=== PATIENT | female | born 1945 | race Caucasian/White ===

== ENCOUNTER → 2020-01-28 | Outpatient (CLI) | payer MEDICARE ==
[~2020-01-28] MED LIST: ASPI-630 PO; FERR325T14 PO; GLYB2.5T2 PO; LEVO100T5 PO; LISI1TAB20 PO; LOVA20TA2 PO; METF10007 PO; METO25TA2 PO; NAPR220T70 PO; VERA240C2 PO
[2020-01-28 09:23] LABS: BASO % 1 % (0-3); EOS # 0.1 x10^3/uL (0.0-0.7); EOS % 1 % (0-3); HEMATOCRIT 26.5 % (36.0-47.0); HEMOGLOBIN 7.9 g/dL (12.0-15.5); LYMPH # 1.1 x10^3/uL (1.0-4.8); LYMPH % 20 % (24-48); MEAN CORPUSCULAR HEMOGLOBIN 20 pg (25-35); MEAN CORPUSCULAR HGB CONC 30 g/dL (31-37); MEAN CORPUSCULAR VOLUME 67 fL (79-100); MONO # 0.3 x10^3/uL (0.0-1.1); MONO % 6 % (0-9); NEUT # 3.9 x10^3/uL (1.8-7.7); NEUT % 72 % (31-73); PLATELET COUNT 111 x10^3/uL (140-400); RED BLOOD COUNT 3.96 x10^6/uL (3.50-5.40); RED CELL DISTRIBUTION WIDTH 17.6 % (11.5-14.5); WHITE BLOOD COUNT 5.4 x10^3/uL (4.0-11.0)
[2020-01-28 09:31] LABS: PROTHROMBIN TIME PATIENT 13.5 SEC (11.7-14.0)
[2020-01-28 09:40] LABS: ALBUMIN 3.6 g/dL (3.4-5.0); CALCIUM 9.1 mg/dL (8.5-10.1); CREATININE 0.8 mg/dL (0.6-1.0); GFR 70.3; POTASSIUM 3.9 mmol/L (3.5-5.1)
[2020-01-28 09:50] LABS: PLT ESTIMATE DECREASED (ADEQUATE)
[2020-01-28 09:52] LABS: ANISOCYTOSIS MOD; HYPOCHROMIA MOD; MICROCYTOSIS MOD; OVALOCYTES FEW; POLYCHROMASIA SLIGHT; STOMATOCYTES OCC; TARGET CELLS FEW; TEAR DROP CELLS OCC
--- NOTE | 2020-01-28 13:20 | EKG ---
[facility] [address] [place] [address] Test Date: 2020-01-28 Test Time: 12:58:59 Pat Name: ADOLPH BLACKMAN Department: Room: Gender: F [employer]uarant Crew Worker: VAZQUEZ : [id number] Requested By: HAKAN JUAREZ Order Number: [id number] Reading MD: Ad Floyd Measurements Intervals [place] Rate: 69 P: 0 MA: 182 QRS: 11 QRSD: 82 T: 10 QT: 432 QTc: 465 Interpretive Statements SINUS RHYTHM NORMAL ECG Electronically Signed On 01-28-2020 15:05:01 CDT by Ad Floyd
--- NOTE | 2020-01-28 14:40 | RAD ---
CHEST PA LATERAL History: Hypertension. Joint pre-hab class Comparison: None. Findings: Frontal and lateral views of the chest were obtained. The cardiomediastinal silhouette is normal. Pulmonary vasculature is normal. The lungs are clear. No pleural effusion or pneumothorax is seen. There is no acute bone abnormality. Surgical clips involve the upper abdomen. IMPRESSION: No acute cardiopulmonary process. Electronically signed by: Chava Contreras MD (01/28/2020 2:37 PM) [id number]
[2020-01-29 00:07] LABS: HEMOGLOBIN A1C 6.1 % (4.8-5.6)
== END | disposition home or self-care (01) ==
LOC: SURGPAT 12:56
PROVIDERS: ATTEND Orthopaedic Surgery Sports Medicine
DX: Z01.818 Encounter for other preprocedural examination (principal); M16.11 Unilateral primary osteoarthritis, right hip; I10 Essential (primary) hypertension; Z88.0 Allergy status to penicillin
CPT/HCPCS: 36415; 71046; 80048; 82040; 82306; 83036; 85025; 85610; 85651; 85730; 87641; 93005

== ENCOUNTER → 2020-04-24 | Outpatient (CLI) | payer MEDICARE ==
[~2020-04-24] MED LIST changes: +HYDR-2761 PO; +OXYC1TAB15 PO; +WARF5TAB2 PO
[2020-04-24 09:55] LABS: BASO % 1 % (0-3); EOS # 0.1 x10^3/uL (0.0-0.7); EOS % 2 % (0-3); HEMATOCRIT 30.3 % (36.0-47.0); HEMOGLOBIN 9.2 g/dL (12.0-15.5); LYMPH # 1.2 x10^3/uL (1.0-4.8); LYMPH % 19 % (24-48); MEAN CORPUSCULAR HEMOGLOBIN 22 pg (25-35); MEAN CORPUSCULAR HGB CONC 31 g/dL (31-37); MEAN CORPUSCULAR VOLUME 71 fL (79-100); MONO # 0.5 x10^3/uL (0.0-1.1); MONO % 8 % (0-9); NEUT # 4.3 x10^3/uL (1.8-7.7); NEUT % 71 % (31-73); PLATELET COUNT 132 x10^3/uL (140-400); RED BLOOD COUNT 4.28 x10^6/uL (3.50-5.40); RED CELL DISTRIBUTION WIDTH 19.1 % (11.5-14.5); WHITE BLOOD COUNT 6.1 x10^3/uL (4.0-11.0)
[2020-04-24 11:58] LABS: PROTHROMBIN TIME PATIENT 13.5 SEC (11.7-14.0)
[2020-04-24 12:00] LABS: ALBUMIN 3.6 g/dL (3.4-5.0); C-REACTIVE PROTEIN 0.9 mg/L (0-3.3); CALCIUM 8.6 mg/dL (8.5-10.1); CREATININE 1.1 mg/dL (0.6-1.0); GFR 48.7; POTASSIUM 4.2 mmol/L (3.5-5.1)
[2020-04-24 12:43] LABS: PLT ESTIMATE DECREASED (ADEQUATE)
[2020-04-24 12:45] LABS: ANISOCYTOSIS PRESENT; HYPOCHROMIA MOD; MICROCYTOSIS MOD
[2020-04-25 00:07] LABS: HEMOGLOBIN A1C 5.9 % (4.8-5.6)
== END | disposition home or self-care (01) ==
LOC: SURGPAT 09:03
PROVIDERS: ATTEND Orthopaedic Surgery Sports Medicine
DX: Z01.818 Encounter for other preprocedural examination (principal); M16.11 Unilateral primary osteoarthritis, right hip; Z79.01 Long term (current) use of anticoagulants; Z79.899 Other long term (current) drug therapy; Z88.0 Allergy status to penicillin
CPT/HCPCS: 36415; 80048; 82040; 82306; 83036; 85025; 85610; 85730; 86140; 87641; U0003-CS

== ENCOUNTER 2020-04-28 08:14 | Inpatient (IN) | payer MEDICARE ==
[~2020-04-28] VITALS: Ht 154.9 cm; Wt 77.5 kg
[2020-04-28] VITALS (9 sets, daily range): BP systolic 119–138; BP diastolic 49–63
[~2020-04-28 08:14] MED LIST changes: +ACETAMINOPHEN 500 MG TABLET PO PRN; -HYDR-2761 PO; +HYDROmorphone 2 MG/ML VIAL IV PRN; +IV RINGERS,LACTATED 1000ML 1,000 ML IV SCH; +LIDOCAINE 1% PF 2 ML VIAL. ID PRN; +MELOXICAM 7.5 MG TABLET PO PRN; +MORPHINE SULFATE 2 MG/ML VIAL. IV PRN; +ONDANSETRON PF 4 MG/2 ML VIAL. IV PRN; -OXYC1TAB15 PO; +PROCHLORPERAZINE 10 MG/2 ML VIAL. IV PRN; +TRANEXAMIC ACID 1,000 MG in IV NS 50ML -- 1ST BAG INJ ONE; +TRANEXAMIC ACID 1,000 MG in IV NS 50ML -- 2ND BAG INJ ONE; +TV=100ml MORPHINE 5 MG, KETOROLAC 30 MG, ROPIVacaine 0.5% PF 60 ML, EPINEPH... INT ART ONE; +VANCOMYCIN 1GM IVPB FOR OMNI 250 ML IV PRN; -WARF5TAB2 PO; +fentaNYL PF VIAL 100 MCG/2 ML VIAL IV PRN
[2020-04-28] MEDS ORDERED: fentaNYL PF VIAL 100 MCG/2 ML VIAL ONE ×2 (08:22→10:51)
[2020-04-28] MEDS ORDERED: PROPOFOL 10 MG/ML (20ML) VIAL. IV ONE (08:22)
[2020-04-28] MEDS ORDERED: GLYCOPYRROLATE 1 MG/5 ML VIAL. ONE (08:22)
[2020-04-28] MEDS ORDERED: NEOSTIGMINE METHYLSULFATE 5 MG/5 ML SYRINGE. ONE (08:22)
[2020-04-28] MEDS ORDERED: ROCURONIUM 50 MG/5 ML VIAL. ONE (08:22)
[2020-04-28] MEDS ORDERED: ONDANSETRON PF 4 MG/2 ML VIAL. ONE (08:23)
[2020-04-28] MEDS ORDERED: DEXAMETHASONE SOD PHOS 4 MG/ML VIAL ONE (08:23)
[2020-04-28] MEDS ORDERED: LIDOCAINE 2% PF 5 ML VIAL. ONE (08:23)
[2020-04-28] MEDS: INSULIN LISPRO 100 UNIT/ML 3ML VIAL for OP,RR ONLY. SQ PRN ×2 (09:11→12:25)
[2020-04-28] MEDS ORDERED: VANCOMYCIN 1 GM in IV NORMAL SALINE 250ML 250 ML IV ONE ×2 (09:45→22:00)
[2020-04-28] MEDS ORDERED: ZOLPIDEM 5 MG TABLET. PO PRN (09:45)
[2020-04-28] MEDS ORDERED: DEXTROSE 50% 25 GM / 50ML DISP.SYRIN. IV PRN ×2 (09:45)
[2020-04-28] MEDS ORDERED: diphenhydrAMINE 50 MG/ML VIAL IVP PRN (09:45)
[2020-04-28] MEDS ORDERED: MORPHINE SULFATE 2 MG/ML VIAL. IVP PRN (09:45)
[2020-04-28] MEDS ORDERED: CALCIUM CARBONATE 500 MG TAB.CHEW PO PRN (09:45)
[2020-04-28] MEDS ORDERED: METOCLOPRAMIDE HCL 10 MG/2 ML VIAL. IVP PRN (09:45)
[2020-04-28] MEDS ORDERED: PROCHLORPERAZINE 5 MG TABLET. PO PRN (09:45)
[2020-04-28] MEDS ORDERED: 0.9 % SODIUM CHLORIDE 10 ML DISP.SYRIN. IV PRN (09:45)
[2020-04-28] MEDS ORDERED: fentaNYL PF VIAL 100 MCG/2 ML VIAL IVP PRN (09:45)
[2020-04-28] MEDS ORDERED: hydrALAZINE 20 MG/ML VIAL. ONE (10:48)
[2020-04-28] MEDS ORDERED: PHENYLEPHRINE in 0.9% NACL PF 1 MG/10 ML SYRINGE. IV ONE (11:11)
--- NOTE | 2020-04-28 11:45 | PDOC4 ---
Operative Note Operative Note Date of procedure: 04/28/2020 Surgeon: Andres Juarez Assistants: Cristino Shah and Layton Zee Preoperative diagnosis: Advanced right hip primary degenerative joint disease Postoperative diagnosis: Same Procedure performed: Right total hip arthroplasty Anesthesia: General Blood loss: 200 mL Complications: None Findings: Advanced degenerative joint disease of right hip Components inserted: [employer]hew 52mm R3 shell with a 36 mm 20 degree posterior liner and a size 16 standard femoral component with a 36+0 cobalt chrome head Reason for procedure: Patient is a very pleasant 74-year-old female who has had persistent and progressive pain interfering with her activities of daily living and recreational activities due to her right hip pain. Clinical and radiographic examination were consistent with the above preoperative diagnosis. The patient had tried and failed conservative therapies and because of this we had a discussion of the risks, benefits, and alternatives and she elected to proceed. Description of procedure: Patient was greeted in the preoperative area by myself or the correct extremity was verified and marked. She was taken to the operative suite, and antibiotics started as she was brought back. Once in the operating room, transferred gently supine to the operating table and secured to the bed with all pressure points padded, she had a left successful induction of a general anesthetic and then we placed her in a lateral decubitus position with the right side up. Axillary roll was used. I appreciate her leg lengths in this position. We then proceeded prep and drape right lower extremity and hip in our usual sterile fashion including an [place]oban sandwich. Our standard preoperative timeout was conducted. I then palpated marked surface anatomy and layo a line for my posterior lateral skin incision and incised skin accordance with this. I dissected subcutaneous tissue with electrocautery, ensuring hemostasis as I proceeded. Identified the fascia and incised this in line with the skin incision and bluntly split gluteus aarti. I then placed my self-retaining retractor, held the leg in slight internal rotation, excised some bursal tissue and identified the quadratus. I took this down with electrocautery followed by the piriformis which was tagged for later repair. I then opened his hip capsule in a T-type incision, tagging ends for later repair., This allowed us to deliver the femoral head into the operative field. I made cardoso for my offset and length and took these measurements. I then measured 1 cm proximal to the lesser trochanter with electrocautery on the neck and then made my neck cut, delivering bony remnant from the operative field. We then repositioned the leg, added our anterior and posterior acetabular retractors. I took down osteophytes and appreciated the citizen pot[place]atomi anatomy. I then began reaming and reamed up to the above size which gave good punctate bleeding bony bed. Overall, I felt her bone was quite soft. The operative field was then thoroughly irrigated. I then impacted my cup in position using the crossbar attachment on the insertion handle as well as referencing citizen [place]i anatomy. I then placed a screw into the posterior column. After this, I inserted my polyethylene liner, impacting in position and making sure it had fully seated. I then reposition the leg and added my proximal femoral elevator after removing my acetabular retractors. I used a cookie cutting osteotome followed by canal finding reamer and a lateralizing reamer. I then began broaching and broached to the above size. I then trialed various head and offset lengths. We then redislocated the hip and I removed the broach, the canal was thoroughly irrigated. I then impacted my femoral stem into position and we again trialed and neck lengths selecting the above size which helped reproduce the measurements, and gave excellent stability and leg length. After this, I redislocated the hip and washed and dried the [place] taper region and gently impacted my femoral head into position, we then irrigated everything out I inspected the cup, no debris. We then reduced the hip. I then closed capsule with simple interrupted #2 Ethibond. Piriformis was reapproximated through drill tunnels. Quadratus was repaired with #2 Ethibond. After this, fascia was closed with running #2 Quill. Inverted interrupted 2-0 Vicryl was used in a multilayered fashion for subcutaneous tissue and skin followed by running 3-0 Monocryl. Prior to wound closure, all counts correct x2. Prior to closing the skin and subcutaneous tissue, our periarticular mixture was injected in the lala-incisional soft tissues. After completing wound closure, the hip was cleansed and dried and our incisional wound VAC was applied. After this, the p atient was laid supine and transferred gently supine to the hospital bed and taken to PACU in stable and extubated condition. Postoperative plan is to admit her to the joint center for DVT and antibiotic prophylaxis as well as PT and OT. ANDRES JUAREZ II, MD Apr 28, 2020 11:45
[2020-04-28] MEDS: ONDANSETRON PF 4 MG/2 ML VIAL. IVP SCH ×2 (12:00→17:07)
[2020-04-28] MEDS: ONDANSETRON ODT 4 MG TAB.RAPDIS. PO SCH ×2 (12:00→17:08)
[2020-04-28] MEDS: INSULIN LISPRO 300 UNITS/3 ML VIAL. SQ SCH ×3 (12:00→17:06)
--- NOTE | 2020-04-28 12:57 | RAD ---
PELVIS History: Reason: post op right hip replacement / Spl. Instructions: / History: Technique: AP view the pelvis. Comparison: January 18, 2020 Findings: Interval right total hip arthroplasty. Expected postoperative changes subcutaneous and intra-articular gas. Normal alignment. No fracture. Vascular calcifications. Lower lumbar spondylosis. Impression: 1. Interval right total hip arthroplasty. No immediate hardware complications. Electronically signed by: Guevara Garnett DO (04/28/2020 12:54 PM) [id number]
[2020-04-28 14:47] LABS: PROTHROMBIN TIME PATIENT 14.8 SEC (11.7-14.0)
[2020-04-28] MEDS ORDERED: WARFARIN 7.5 MG TABLET. PO ONE (16:00)
[2020-04-28] MEDS ORDERED: WARFARIN 5 MG TABLET. PO ONE (16:00)
[2020-04-28] MEDS: metFORMIN 500 MG TABLET PO SCH (16:50)
[2020-04-28] MEDS: FERROUS SULFATE 325 MG TABLET. PO SCH (16:50)
[2020-04-28] MEDS: oxyCODONE IR 5 MG TABLET PO PRN (16:55)
[2020-04-28] MEDS: IV NORMAL SALINE 1000ML BAG 1,000 ML IV SCH (20:26)
[2020-04-28] MEDS: ATORVASTATIN CALCIUM 10 MG TABLET. PO SCH (21:03)
[2020-04-29 03:00] VITALS: BP 134/57
[2020-04-29 04:40] LABS: PROTHROMBIN TIME PATIENT 15.3 SEC (11.7-14.0)
[2020-04-29] MEDS: ONDANSETRON ODT 4 MG TAB.RAPDIS. PO SCH ×2 (06:00)
[2020-04-29] MEDS ORDERED: MAGNESIUM HYDROXIDE 2,400 MG/30 ML ORAL.SUSP. PO PRN (06:00)
[2020-04-29] MEDS: ONDANSETRON PF 4 MG/2 ML VIAL. IVP SCH ×2 (06:00)
[2020-04-29] MEDS: oxyCODONE IR 5 MG TABLET PO PRN ×2 (06:09→12:37)
[2020-04-29] MEDS: LEVOTHYROXINE 100 MCG TABLET PO SCH (06:09)
[2020-04-29 06:11] VITALS: BP 139/61
--- NOTE | 2020-04-29 07:33 | PDOC ---
JANEJODIE Samm ALEXANDER 04/29/20 0733: ORTHO PROGRESS NOTES Subjective Patient states the pain is tolerable and feels much better after surgery. Post-op Day: 1 Procedure Right total hip arthroplasty Vitals Vital Signs Date Time Temp Pulse Resp B/P (MAP) Pulse Ox O2 Delivery O2 Flow Rate FiO2 04/29/20 06:11 98.1 79 16 139/61 (87) 97 Room Air 98.1 04/28/20 11:56 8 Labs Laboratory Tests Test 04/28/20 09:02 04/28/20 12:10 04/28/20 14:15 04/28/20 16:45 Glucose (Fingerstick) 160 mg/dL (70-99) 193 mg/dL (70-99) 245 mg/dL (70-99) Prothrombin Time 14.8 SEC (11.7-14.0) Prothromb Time International Ratio 1.2 (0.8-1.1) Test 04/29/20 04:15 04/29/20 06:32 Hemoglobin 7.5 g/dL (12.0-15.5) Prothrombin Time 15.3 SEC (11.7-14.0) Prothromb Time International Ratio 1.3 (0.8-1.1) Glucose (Fingerstick) 113 mg/dL (70-99) Laboratory Tests Test 04/28/20 09:02 04/28/20 12:10 04/28/20 14:15 04/28/20 16:45 Glucose (Fingerstick) 160 mg/dL (70-99) 193 mg/dL (70-99) 245 mg/dL (70-99) Prothrombin Time 14.8 SEC (11.7-14.0) Prothromb Time International Ratio 1.2 (0.8-1.1) Test 04/29/20 04:15 04/29/20 06:32 Hemoglobin 7.5 g/dL (12.0-15.5) Prothrombin Time 15.3 SEC (11.7-14.0) Prothromb Time International Ratio 1.3 (0.8-1.1) Glucose (Fingerstick) 113 mg/dL (70-99) Notes Awake and alert Assessment and Plan Postop day 1 status post right total hip arthroplasty Motor and sensation intact distally Calf is soft and nontender. Dressing is dry and intact. We will follow hemoglobin of 7.5 PT today HAKAN JUAREZ II, MD 04/29/20 0915: ORTHO PROGRESS NOTES Assessment and Plan She will continue PT and OT. She is doing quite well so far. We will monitor her progress today. JODIE LARA APRN Apr 29, 2020 07:33 HAKAN JUAREZ II, MD Apr 29, 2020 09:15
[2020-04-29] MEDS: INSULIN LISPRO 300 UNITS/3 ML VIAL. SQ SCH ×3 (08:00→16:30)
[2020-04-29] MEDS: ASPIRIN CHEWABLE 81 MG TABLET. PO SCH (08:17)
[2020-04-29] MEDS: MELOXICAM 7.5 MG TABLET PO SCH (08:17)
[2020-04-29] MEDS: MULTIVITAMIN with MINERAL TABLET. PO SCH (08:17)
[2020-04-29] MEDS: FERROUS SULFATE 325 MG TABLET. PO SCH ×2 (08:18→16:44)
[2020-04-29] MEDS: metFORMIN 500 MG TABLET PO SCH ×2 (08:18→16:44)
[2020-04-29] MEDS: ACETAMINOPHEN 500 MG TABLET PO SCH ×3 (08:18→21:14)
[2020-04-29] MEDS: SENNOSIDES/DOCUSATE 8.6/50MG TABLET. PO SCH (08:18)
[2020-04-29] MEDS: CHOLECALCIFEROL (VITAMIN D3) 5,000 UNIT CAPSULE PO SCH (08:18)
[2020-04-29] MEDS: glyBURIDE 5 MG TABLET PO SCH (08:19)
[2020-04-29] MEDS: METOPROLOL SUCC 24HR ER 25 MG TAB.ER.24H. PO SCH (08:25)
[2020-04-29] MEDS: hydroCHLOROthiazide 25 MG TABLET PO SCH (08:27)
[2020-04-29] MEDS: LISINOPRIL 20 MG TABLET PO SCH (08:27)
[2020-04-29] MEDS ORDERED: FERROUS SULFATE 325 MG TABLET. PO SCH (09:00)
[2020-04-29] MEDS: IV NORMAL SALINE 1000ML BAG 1,000 ML IV SCH (09:32)
[2020-04-29] MEDS ORDERED: VANCOMYCIN 1 GM in IV NORMAL SALINE 250ML 250 ML IV ONE (10:00)
[2020-04-29] MEDS ORDERED: ONDANSETRON ODT 4 MG TAB.RAPDIS. PO PRN (12:00)
[2020-04-29] MEDS ORDERED: ONDANSETRON PF 4 MG/2 ML VIAL. IVP PRN (12:00)
[2020-04-29 12:37] VITALS: BP 143/57
[2020-04-29] MEDS: VERAPAMIL 40 MG TABLET. PO SCH (14:41)
[2020-04-29] MEDS ORDERED: BISACODYL 10 MG SUPP.RECT. PR PRN (16:00)
[2020-04-29] MEDS ORDERED: WARFARIN 5 MG TABLET. PO ONE (16:00)
[2020-04-29 18:41] VITALS: BP 115/48
[2020-04-29] MEDS: ATORVASTATIN CALCIUM 10 MG TABLET. PO SCH (21:14)
[2020-04-30] MEDS: ACETAMINOPHEN 500 MG TABLET PO SCH ×4 (03:00→20:30)
[2020-04-30 03:38] LABS: HEMATOCRIT 24.5 % (36.0-47.0); HEMOGLOBIN 7.6 g/dL (12.0-15.5)
[2020-04-30 03:54] LABS: PROTHROMBIN TIME PATIENT 15.9 SEC (11.7-14.0)
[2020-04-30 06:30] VITALS: BP 131/56
[2020-04-30] MEDS: INSULIN LISPRO 300 UNITS/3 ML VIAL. SQ SCH ×3 (08:00→16:50)
[2020-04-30] MEDS: MULTIVITAMIN with MINERAL TABLET. PO SCH (08:45)
[2020-04-30] MEDS: metFORMIN 500 MG TABLET PO SCH ×2 (08:46→16:49)
[2020-04-30] MEDS: ASPIRIN CHEWABLE 81 MG TABLET. PO SCH (08:46)
[2020-04-30] MEDS: CHOLECALCIFEROL (VITAMIN D3) 5,000 UNIT CAPSULE PO SCH (08:46)
[2020-04-30] MEDS: glyBURIDE 5 MG TABLET PO SCH (08:46)
[2020-04-30] MEDS: SENNOSIDES/DOCUSATE 8.6/50MG TABLET. PO SCH (08:46)
[2020-04-30] MEDS: oxyCODONE IR 5 MG TABLET PO PRN ×2 (08:46→12:29)
[2020-04-30] MEDS: hydroCHLOROthiazide 25 MG TABLET PO SCH (08:46)
[2020-04-30] MEDS: MELOXICAM 7.5 MG TABLET PO SCH (08:47)
[2020-04-30] MEDS: LISINOPRIL 20 MG TABLET PO SCH (08:47)
[2020-04-30] MEDS: FERROUS SULFATE 325 MG TABLET. PO SCH ×2 (08:47→16:49)
[2020-04-30] MEDS: METOPROLOL SUCC 24HR ER 25 MG TAB.ER.24H. PO SCH (08:48)
[2020-04-30] MEDS: VERAPAMIL 40 MG TABLET. PO SCH (08:48)
[2020-04-30] MEDS: LEVOTHYROXINE 100 MCG TABLET PO SCH (08:49)
[2020-04-30] MEDS: IV NORMAL SALINE 1000ML BAG 1,000 ML IV SCH (08:52)
--- NOTE | 2020-04-30 12:21 | SNU/HH DC ---
DISCHARGE WITH HOME HEALTH DISCHARGE INFORMATION: Discharge Date: May 01, 2020 Final Diagnosis: Advanced primary right hip degenerative joint disease, status post arthroplasty Condition on Discharge: Stable CODE STATUS: Code Status: Full HOME HEALTH: Face to Face: I certify this patient is under my care and that I, or a nurse practitioner or physician's content assistant working with me, had a face to face encounter that meets the physician face to face encounter requirements with this patient on []. Medical Complications: S/P Joint Replacement RN For Eval/Treatment: Yes (Blood draw) Physical Therapy For: Evalulation/Treatment Occupational Therapy For: Evaluation/Treatment Pt Meets Homebound Status: Poor coordination w/ amb., Unsteady balance w/ amb,, Limited distance walking POST DISCHARGE ORDERS: Activity Instructions for Disc: Activity as tolerated Weight Bearing Status after Di: As tolerated Bathing Instructions: Shower-keep dressing dry DIET AFTER DISCHARGE: ADA Wound/Incision Care: Ice to area for comfort, Keep wound/cast CDI, Do not change dressing FOLLOW-UP: Follow up with: Eliza in 2 wks CERTIFICATION STATEMENT: Certification Statement: Certification Statement: Based on the above finding, I certify that this patient is confined to the home and needs intermittent fpc care, physical therapy and/or speech therapy, or continues to need occupational therapy.~ This patient is under my care, and I have initiated the establishment of the plan of care.~ This patient will be followed by myself or a community physician who will periodically review the plan of care. Home Meds Reported Medications Ferrous Sulfate (FERROUS SULFATE) 325 Mg Tablet, 325 MG PO DAILY for BUILD UP BLOOD COUNT, TAB 01/29/20 Lovastatin (LOVASTATIN) 20 Mg Tablet, 20 MG PO HS for CONTROL LIPIDS, TAB 01/29/20 Verapamil Hcl (VERAPAMIL ER) 240 Mg Cap24h.pel, 80 MG PO DAILY for BP CONTROL, CAP.SR 01/29/20 Metoprolol Succinate (TOPROL XL) 25 Mg Tab.er.24h, 50 MG PO DAILY for FOR HYPERTENSION, #30 TAB 0 Refills 01/29/20 Glyburide (GLYBURIDE) 2.5 Mg Tablet, 2.5 MG PO DAILY for CONTROL DIABETES, TAB 01/29/20 Metformin Hcl (METFORMIN HCL) 1,000 Mg Tablet, 1000 MG PO BIDWMEALS for CONTROL DIABETES, TAB 01/29/20 Lisinopril/Hydrochlorothiazide (LISINOPRIL-HCTZ 20-25 MG TAB) 1 Each Tablet, 1 TAB PO DAILY for CONTROL BP, #90 TAB 3 Refills 01/29/20 Levothyroxine Sodium (LEVOTHYROXINE SODIUM) 100 Mcg Tablet, 100 MCG PO DAILYAC for THYROID SUPPLEMENT, #30 TAB 0 Refills 01/29/20 Aspirin (ASPIRIN) 81 Mg Tab.chew, 81 MG PO DAILY for BLOOD THINNER, TAB.CHEW 01/29/20 Naproxen Sodium (ALEVE) 220 Mg Tablet, 220 MG PO BID for PAIN CONTROL, TAB 01/29/20 HAKAN JUAREZ II, MD Apr 30, 2020 12:21
--- NOTE | 2020-04-30 12:22 | PDOC ---
ORTHO PROGRESS NOTES Subjective Overall she feels like she is doing well, some increased pain after PT Vitals Vital Signs Date Time Temp Pulse Resp B/P (MAP) Pulse Ox O2 Delivery O2 Flow Rate FiO2 04/30/20 09:46 96 Room Air 04/30/20 08:48 91 140/55 04/30/20 06:30 98.7 16 98.7 Labs Laboratory Tests Test 04/28/20 14:15 04/28/20 16:45 04/29/20 04:15 04/29/20 06:32 Prothrombin Time 14.8 SEC (11.7-14.0) 15.3 SEC (11.7-14.0) Prothromb Time International Ratio 1.2 (0.8-1.1) 1.3 (0.8-1.1) Glucose (Fingerstick) 245 mg/dL (70-99) 113 mg/dL (70-99) Hemoglobin 7.5 g/dL (12.0-15.5) Test 04/29/20 11:23 04/29/20 16:29 04/30/20 03:20 04/30/20 06:36 Glucose (Fingerstick) 155 mg/dL (70-99) 92 mg/dL (70-99) 137 mg/dL (70-99) Hemoglobin 7.6 g/dL (12.0-15.5) Hematocrit 24.5 % (36.0-47.0) Mean Corpuscular Hemoglobin Concent 31 g/dL (31-37) Prothrombin Time 15.9 SEC (11.7-14.0) Prothromb Time International Ratio 1.3 (0.8-1.1) Test 04/30/20 11:34 Glucose (Fingerstick) 133 mg/dL (70-99) Laboratory Tests Test 04/29/20 16:29 04/30/20 03:20 04/30/20 06:36 04/30/20 11:34 Glucose (Fingerstick) 92 mg/dL (70-99) 137 mg/dL (70-99) 133 mg/dL (70-99) Hemoglobin 7.6 g/dL (12.0-15.5) Hematocrit 24.5 % (36.0-47.0) Mean Corpuscular Hemoglobin Concent 31 g/dL (31-37) Prothrombin Time 15.9 SEC (11.7-14.0) Prothromb Time International Ratio 1.3 (0.8-1.1) Notes She is awake and alert and sitting in a chair. Dressing is intact. Normal motor and sensation are present in her right leg Assessment and Plan We will work on getting home health coordinated for anticipated discharge tomorrow. She will continue PT and OT as well as Coumadin. HAKAN JUAREZ II, MD Apr 30, 2020 12:22
[2020-04-30] MEDS ORDERED: WARFARIN 5 MG TABLET. PO ONE (16:00)
[2020-04-30 18:09] VITALS: BP 131/59
[2020-04-30] MEDS: ATORVASTATIN CALCIUM 10 MG TABLET. PO SCH (20:30)
[2020-05-01] MEDS: ACETAMINOPHEN 500 MG TABLET PO SCH ×3 (02:58→14:33)
[2020-05-01 04:44] LABS: HEMATOCRIT 24.1 % (36.0-47.0); HEMOGLOBIN 7.4 g/dL (12.0-15.5)
[2020-05-01 04:51] LABS: PROTHROMBIN TIME PATIENT 15.6 SEC (11.7-14.0)
[2020-05-01 06:08] VITALS: BP 106/47
[2020-05-01] MEDS: INSULIN LISPRO 300 UNITS/3 ML VIAL. SQ SCH ×2 (07:50→11:06)
[2020-05-01] MEDS: hydroCHLOROthiazide 25 MG TABLET PO SCH (07:51)
[2020-05-01] MEDS: MELOXICAM 7.5 MG TABLET PO SCH (07:51)
[2020-05-01] MEDS: CHOLECALCIFEROL (VITAMIN D3) 5,000 UNIT CAPSULE PO SCH (07:52)
[2020-05-01] MEDS: METOPROLOL SUCC 24HR ER 25 MG TAB.ER.24H. PO SCH (07:52)
[2020-05-01] MEDS: FERROUS SULFATE 325 MG TABLET. PO SCH (07:52)
[2020-05-01] MEDS: LISINOPRIL 20 MG TABLET PO SCH (07:52)
[2020-05-01] MEDS: MULTIVITAMIN with MINERAL TABLET. PO SCH (07:52)
[2020-05-01] MEDS: ASPIRIN CHEWABLE 81 MG TABLET. PO SCH (07:52)
[2020-05-01 07:53] VITALS: BP 117/53
[2020-05-01] MEDS: LEVOTHYROXINE 100 MCG TABLET PO SCH (07:53)
[2020-05-01] MEDS: oxyCODONE IR 5 MG TABLET PO PRN ×2 (07:53→11:51)
[2020-05-01] MEDS: glyBURIDE 5 MG TABLET PO SCH (07:53)
[2020-05-01] MEDS: SENNOSIDES/DOCUSATE 8.6/50MG TABLET. PO SCH (07:53)
[2020-05-01] MEDS: VERAPAMIL 40 MG TABLET. PO SCH (07:53)
[2020-05-01] MEDS: metFORMIN 500 MG TABLET PO SCH (07:54)
[2020-05-01] MEDS ORDERED: OXYC1TAB15 PO (09:34)
[2020-05-01] MEDS ORDERED: WARF5TAB2 PO (09:35)
[2020-05-01] MEDS ORDERED: HYDR-2761 PO (09:45)
--- NOTE | 2020-05-01 12:45 | PDOC3 ---
Discharge Summary Visit Information Date of Admission: Apr 28, 2020 Date of Discharge: May 01, 2020 Admitting Diagnosis: Advanced primary right hip degenerative joint disease Brief Hospital Course Allergies Allergies Coded Allergies Type Severity Reaction Last Updated Verified Penicillins Allergy Severe Hives 04/28/20 Yes Vital Signs Vital Signs Date Time Temp Pulse Resp B/P (MAP) Pulse Ox O2 Delivery O2 Flow Rate FiO2 05/01/20 11:51 98 Room Air 05/01/20 07:53 80 117/53 05/01/20 06:08 98.5 98.5 04/30/20 19:30 8.0 04/30/20 18:09 18 Lab Results Laboratory Tests Test 04/29/20 16:29 04/30/20 03:20 04/30/20 06:36 04/30/20 11:34 Glucose (Fingerstick) 92 mg/dL (70-99) 137 mg/dL (70-99) 133 mg/dL (70-99) Hemoglobin 7.6 g/dL (12.0-15.5) Hematocrit 24.5 % (36.0-47.0) Mean Corpuscular Hemoglobin Concent 31 g/dL (31-37) Prothrombin Time 15.9 SEC (11.7-14.0) Prothromb Time International Ratio 1.3 (0.8-1.1) Test 04/30/20 16:38 04/30/20 20:23 05/01/20 03:15 05/01/20 06:02 Glucose (Fingerstick) 104 mg/dL (70-99) 158 mg/dL (70-99) 108 mg/dL (70-99) Hemoglobin 7.4 g/dL (12.0-15.5) Hematocrit 24.1 % (36.0-47.0) Mean Corpuscular Hemoglobin Concent 31 g/dL (31-37) Prothrombin Time 15.6 SEC (11.7-14.0) Prothromb Time International Ratio 1.3 (0.8-1.1) Test 05/01/20 10:58 Glucose (Fingerstick) 119 mg/dL (70-99) Laboratory Tests Test 04/30/20 16:38 04/30/20 20:23 05/01/20 03:15 05/01/20 06:02 Glucose (Fingerstick) 104 mg/dL (70-99) 158 mg/dL (70-99) 108 mg/dL (70-99) Hemoglobin 7.4 g/dL (12.0-15.5) Hematocrit 24.1 % (36.0-47.0) Mean Corpuscular Hemoglobin Concent 31 g/dL (31-37) Prothrombin Time 15.6 SEC (11.7-14.0) Prothromb Time International Ratio 1.3 (0.8-1.1) Test 05/01/20 10:58 Glucose (Fingerstick) 119 mg/dL (70-99) Brief Hospital Course Ms. Cee is a 74 old female who presented to my outpatient orthopedic surgery clinic with complaints of severe and progressive pain that failed conservative therapies including injections. We had a discussion of the risks, benefits, alternatives to total hip arthroplasty and she elected to proceed. She tolerated surgery well and recovered well from anesthesia in the PACU. She was then taken to the joint Center for care and observation. She did receive PT, OT, DVT and antibiotic prophylaxis. She recovered well from surgery and remained hemodynamically stable and afebrile throughout the hospitalization. Pain was controlled on oral pain medicine at the time of discharge. Good progress was made with therapy throughout the hospitalization, and activities of daily living were accomplished by the patient. The incision was clean dry and intact and the operative extremity had normal motor and sensation. Discharge Information Condition at Discharge: Stable Follow Up: Weeks Disposition/Orders: D/C to Home w/ HH Scheduled Aspirin (Aspirin) 81 Mg Tab.chew, 81 MG PO DAILY for BLOOD THINNER, (Reported) Entered as Reported by: CHELSI VALENZUELA on 01/29/201528 Last Taken: Unknown Dose on 01/27/20 Last Action: Continued on 04/28/20938 by LYNDSEY JUAREZ MD Ferrous Sulfate (Ferrous Sulfate) 325 Mg Tablet, 325 MG PO DAILY for BUILD UP BLOOD COUNT, (Reported) Entered as Reported by: CHELSI VALENZUELA on 01/29/201528 Last Taken: Unknown Dose on 04/27/20 Last Action: Continued on 04/28/20938 by LYNDSEY JUAREZ MD Glyburide (Glyburide) 2.5 Mg Tablet, 2.5 MG PO DAILY for CONTROL DIABETES, (Reported) Entered as Reported by: CHELSI VALENZUELA on 01/29/201528 Last Taken: Unknown Dose on 04/27/20 Last Action: Converted on 04/28/20938 by LYNDSEY JUAREZ MD Levothyroxine Sodium (Levothyroxine Sodium) 100 Mcg Tablet, 100 MCG PO DAILYAC for THYROID SUPPLEMENT, #30 Ref 0 (Reported) Entered as Reported by: CHELSI VALENZUELA on 01/29/201528 Last Taken: Unknown Dose on 04/28/20629 Last Action: Continued on 04/28/20938 by LYNDSEY JUAREZ MD Lisinopril/Hydrochlorothiazide (Lisinopril-Hctz 20-25 Mg Tab) 1 Each Tablet, 1 TAB PO DAILY for CONTROL BP, #90 Ref 3 (Reported) Entered as Reported by: CHELSI VALENZUELA on 01/29/201528 Last Taken: Unknown Dose on 04/27/20 Last Action: Converted on 04/28/20938 by LYNDSEY JUAREZ MD Lovastatin (Lovastatin) 20 Mg Tablet, 20 MG PO HS for CONTROL LIPIDS, (Reported) Entered as Reported by: CHELSI VALENZUELA on 01/29/201528 Last Taken: Unknown Dose on 04/27/20 Last Action: Converted on 04/28/20938 by LYNDSEY JUAREZ MD Metformin Hcl (Metformin Hcl) 1,000 Mg Tablet, 1,000 MG PO BIDWMEALS for CONTROL DIABETES, (Reported) Entered as Reported by: CHELSI VALENZUELA on 01/29/201528 Last Taken: Unknown Dose on 04/27/20 Last Action: Converted on 04/28/20938 by LYNDSEY JUAREZ MD Metoprolol Succinate (Toprol Xl) 25 Mg Tab.er.24h, 50 MG PO DAILY for FOR HYPERTENSION, #30 Ref 0 (Reported) Entered as Reported by: CHELSI VALENZUELA on 01/29/201528 Last Taken: Unknown Dose on 04/28/20629 Last Action: Continued on 04/28/20938 by LYNDSEY JUAREZ MD Naproxen Sodium (Aleve) 220 Mg Tablet, 220 MG PO BID for PAIN CONTROL, (Reported) Entered as Reported by: CHELSI VALENZUELA on 01/29/201528 Last Taken: Unknown Dose on 04/21/20 Last Action: HELD on 04/28/20938 by LYNDSEY JUAREZ MD Verapamil Hcl (Verapamil Er) 240 Mg Cap24h.pel, 80 MG PO DAILY for BP CONTROL, (Reported) Entered as Reported by: CHELSI VALENZUELA on 01/29/20 1529 Last Taken: Unknown Dose on 04/28/20 0630 Last Action: Converted on 04/28/20938 by LYNDSEY JUAREZ MD Warfarin Sodium (Coumadin) 5 Mg Tablet, 5 MG PO DAILY for DVT prevention/blood thinner, #30 (Reported) Entered as Reported by: GYPSY ASKEW on 05/01/20 0935 Scheduled PRN Hydrocodone Bit/Acetaminophen (Hydrocodone-Apap 5-325 ) 1 Tab Tablet, 1 TAB PO Q3-4HRS PRN for PAIN, Ref 0 (Reported) Entered as Reported by: GYPSY ASKEW on 05/01/20 0945 Patient Instructions Patient Instructions Patient is to be discharged home, home health care has been set up. She will be on Coumadin for 1 month. Weight-bear as tolerated. She received PT and OT through home health. I will see her back in 2 weeks, sooner should a problem arise. Justicifation of Admission Dx: Justifications for Admission: Justification of Admission Dx: N/A HAKAN JUAREZ II, MD May 01, 2020 12:45
--- NOTE | 2020-05-01 12:46 | PDOC ---
ORTHO PROGRESS NOTES Subjective She has been continuing to make good progress with therapy. Her pain is tolerable. No complaints today. Vitals Vital Signs Date Time Temp Pulse Resp B/P (MAP) Pulse Ox O2 Delivery O2 Flow Rate FiO2 05/01/20 11:51 98 Room Air 05/01/20 07:53 80 117/53 05/01/20 06:08 98.5 98.5 04/30/20 19:30 8.0 04/30/20 18:09 18 Labs Laboratory Tests Test 04/29/20 16:29 04/30/20 03:20 04/30/20 06:36 04/30/20 11:34 Glucose (Fingerstick) 92 mg/dL (70-99) 137 mg/dL (70-99) 133 mg/dL (70-99) Hemoglobin 7.6 g/dL (12.0-15.5) Hematocrit 24.5 % (36.0-47.0) Mean Corpuscular Hemoglobin Concent 31 g/dL (31-37) Prothrombin Time 15.9 SEC (11.7-14.0) Prothromb Time International Ratio 1.3 (0.8-1.1) Test 04/30/20 16:38 04/30/20 20:23 05/01/20 03:15 05/01/20 06:02 Glucose (Fingerstick) 104 mg/dL (70-99) 158 mg/dL (70-99) 108 mg/dL (70-99) Hemoglobin 7.4 g/dL (12.0-15.5) Hematocrit 24.1 % (36.0-47.0) Mean Corpuscular Hemoglobin Concent 31 g/dL (31-37) Prothrombin Time 15.6 SEC (11.7-14.0) Prothromb Time International Ratio 1.3 (0.8-1.1) Test 05/01/20 10:58 Glucose (Fingerstick) 119 mg/dL (70-99) Laboratory Tests Test 04/30/20 16:38 04/30/20 20:23 05/01/20 03:15 05/01/20 06:02 Glucose (Fingerstick) 104 mg/dL (70-99) 158 mg/dL (70-99) 108 mg/dL (70-99) Hemoglobin 7.4 g/dL (12.0-15.5) Hematocrit 24.1 % (36.0-47.0) Mean Corpuscular Hemoglobin Concent 31 g/dL (31-37) Prothrombin Time 15.6 SEC (11.7-14.0) Prothromb Time International Ratio 1.3 (0.8-1.1) Test 05/01/20 10:58 Glucose (Fingerstick) 119 mg/dL (70-99) Notes She is awake and alert, working with physical therapy. Dressing is intact. Normal motor and sensation are present in her right leg Assessment and Plan We will plan on discharging her home with home health today HAKAN JUAREZ II, MD May 01, 2020 12:46
[2020-05-01] MEDS ORDERED: WARFARIN 3 MG TABLET. PO ONE (14:00)
--- NOTE | 2020-05-01 16:06 | PATHOLOGY ---
[facility] Accession Number: [id number] . 01 Material submitted: . hip - RIGHT FEMORAL HEAD. Modifiers: right . 01 Clinical history: . Osteoarthritis/DJD . 02 Diagnosis: Femoral head, right total hip arthroplasty: - Advanced degenerative arthritis, with focal subarticular cystic degeneration. (JPM:eliz; 05/01/2020) QMS 05/01/2020 0908 Local . 02 Electronically signed: . Vasquez Pollard MD, Pathologist NPI- [id number] . 01 Gross description: . The specimen is received in formalin, labeled "Ronda Cee, right femoral head". Received is a femoral head measuring 4.7 x 4.7 x 4.5 cm in greatest dimensions. The articular surface is smooth to irregular in contour with evidence of eburnation, as well as osteophytic lipping. Sectioning reveals yellow-brown cut surfaces, which are soft and friable on the periphery underlying the cartilage. There is also a single cystic structure identified measuring 0.5 cm filled with cloudy mucoid material. The specimen is submitted representatively in cassettes A1 and A2, following decalcification. (CAA; 04/29/2020) QAC/QAC 05/01/2020 0907 Local . 02 Pathologist provided ICD-10: M16.11 . 02 CPT . 176774, [id number] Specimen Comment: A courtesy copy of this report has been sent to [phone], [phone] Specimen Comment: [id number] Specimen Comment: Report sent to / DR MCCLENDON Performed at: [address], [place], [place] [id number] MD Tommy Mathews MD Phone: [phone] Performed at: [address] [facility] [address] [place], [place] [id number] MD Vasquez Pollard MD Phone: [phone]
--- NOTE | 2020-05-06 08:53 | PDOC1 ---
H & P H&P Chief Complaints: 1. Right hip. Patient is doing well today, she says she has had right hip pain since 2017 but getting worse, no recent falls and uses a cane to help her walk. HPI: Hip/Thigh: Hip She has had steadily worsening pain in her buttock and groin for about 3 years., right. Pain groin area, buttock area, worse with activities. Radiation of pain The pain will radiate down her thigh sometimes, does not cross her knee. Direct trauma none. Range of motion Stiff in the mornings. Relieving factors She has tried anti-inflammatories, a cane, she has had an image guided injection and this helped for maybe a month, it was over a year ago. Her hip pain is getting to the point where limits her ability to walk, she is dependent on the cane and on a shopping cart at the grocery store, she has difficulty walking more than a couple 100 feet. ROS: OPHTHALMOLOGY: Blurred vision none. Double vision denies. Change in vision none. ENT: Hearing loss none. Change in voice denies. Rhinorrhea none. CARDIOLOGY: Palpitations none. Shortness of breath denies. Chest pain denies. CONSTITUTIONAL: Fever denies. Chills denies. Weight gain denies. Weakness none. weight loss denies. Fatigue none. GASTROENTEROLOGY: Diarrhea denies. Vomiting none. Dysphagia none. UROLOGY: Voiding normally yes. Hematuria none. MUSCULOSKELETAL: Chronic back or neck pain denies. Swelling of the feet, hands, ankles and /or legs denies. Joint pain no. Tingling/numbness no. DERMATOLOGY: Rash denies. Lumps none. NEUROLOGY: Dizziness/lightheadedness denies. Double vision, temporary blindness denies. Tingling/numbness none. PSYCHOLOGY: Change in mood or personality denies. Memory loss none. ENDOCRINOLOGY: Obesity denies. Fatigue none. Weight loss none. HEMATOLOGY/LYMPH: Hepatitis denies. Enlarged lymph nodes denies. Medical History: Diabetes Mellitus, Hypothyroid, Hypertension, Eczema, Obesity per BMI calculation. Surgical History: hysterectomy 2002, cholecystectomy . Hospitalization/Major Diagnostic Procedure: see surgery history . Family History: Mother: . Father: . Social History: Tobacco Questionnaire Are you a: former smoker, How long has it been since you last smoked? > 10 years. Alcohol Screening SF How often did you have a drink containing alcohol in the past year? never (0 points). Safety: no s afety concerns, seat belts worn. Children: 2. Living arrangements: lives alone. Tobacco History: 15-20 years of smoking quit 20 years ago. Marital Status: . Substance Abuse: none. Medications: Taking ASA 81mg tablet one orally daily, Taking LEVOTHYROXINE 100 mcg (0.1 mg) tablet 1 tab(s) orally once a day, Taking LISINOPRIL/ HYDROCHLOROTHIAZIDE 20/25 tab one PO daily, Notes: stop Hyzaar, Taking Fusion Plus Vitamin B Complex with C, Folic Acid, Iron and Probiotics capsule 1 cap(s) orally once a day, Taking metformin 1000 mg tablet 1 tab(s) orally 2 times a day, Taking glyburide 2.5 mg tablet 1 tab(s) orally once a day, Taking METOPROLOL TARTRATE 100 mg tablet 1 tab(s) orally once a day, Taking verapamil 80 mg tablet 1 tab(s) orally once a day, Taking LOVASTATIN 20 mg tablet 1 tab(s) orally at bedtime, Taking ferrous sulfate 325 mg tablet 1 tab(s) orally daily, Not-Taking Actos 30 mg tablet 1 tab(s) orally once a day, Not-Taking Lopressor 100 mg tablet 1 tab(s) orally qd, Medication List reviewed and reconciled with the patient Allergies: Penicillin: hives. Vitals: Ht 61 in, Wt 171 lbs, BMI 32.31, BP 141/74 mm Hg, HR 75 /min, Temp 97.4 F. Examination: General Exam: X-rays from June 2019 were interpreted by myself. Report was also reviewed. These were compared to x-rays that were performed 01/18/2020. There is been progression of her severe right hip primary degenerative joint disease. Physical Examination: General: General Appearance: alert and oriented. Mental Status: oriented. HEENT: Head: normocephalic, atraumatic. Eyes: EOMI, unremarkable. Chest: Shape and expansion: normal. chest wall: Symmetric chest movement bilaterally. Heart: Edema: none visible. Circulation Capillary refill within normal limits. Abdomen: General: soft. Tenderness: none. Musculoskeletal: Gait cane. Hip: On examination, negative straight leg raise bilaterally. She has about 20? internal rotation at her left, 10 on the right and this reproduces her pain at end range of motion on the right side. No hip flexion contracture. No tenderness laterally.. Skin: Rash: none. Skin Lesion(s): none. Neurological: Mental Status: intact. Reflexes: 2+ bilaterally and symmetric. Sensory: normal sensation. Psychology: Affect: appropriate. Mood: pleasant, normal . Assessment: 1. Hip pain, right - M25.551 (Primary) 2. Primary osteoarthritis of right hip - M16.11 1. Hip pain, right Imaging: Hip 2-3 VW left or right w/pelvis Notes: Today, we did discuss total hip arthroplasty. We talked about the surgery and the postoperative expected course. We also discussed risks of fracture, dislocation, leg length inequality, and nerve damage, infection and possible sequela, general medical problems, stiffness, need for rehabilitation, among others. Justicifation of Admission Dx: Justifications for Admission: Justification of Admission Dx: N/A HAKAN JUAREZ II, MD May 06, 2020 08:53
== END 2020-05-01 16:00 | disposition home health service (06) | DRG 470 ==
LOC: OPSVCIP 08:14 → EDSTATUS 10:00 → 4 SOUTHEST 13:13
PROVIDERS: ADMIT Orthopaedic Surgery Sports Medicine; ATTEND Orthopaedic Surgery Sports Medicine
PROC: 0SR902Z Replacement of Right Hip Joint with Metal on Polyethylene Synthetic Substitute, Open Approach (ICD-10-PCS; principal; 2020-04-28 10:00)
DX: M16.11 Unilateral primary osteoarthritis, right hip (principal); Z88.0 Allergy status to penicillin; I10 Essential (primary) hypertension; E11.9 Type 2 diabetes mellitus without complications; E03.9 Hypothyroidism, unspecified; E66.9 Obesity, unspecified; Z68.32 Body mass index [BMI] 32.0-32.9, adult
CPT/HCPCS: 36415; 72170; 82962; 85014; 85018; 85610; 86850; 86900; 86901; 88304; 88311; A7015; C1713; J0171; J0360; J1100; J1815; J1885; J2270; J2370; J2405; J2704; J2710; J2795; J3010; J3370; J3490; J7030; J7050; J7120; 97116-GP; 97150-GP; 97530-GP; 97535-GO; G0378